=== PATIENT | female | born 1980 | race Caucasian/White ===

== ENCOUNTER 2019-03-29 18:16 | Emergency (ER) | payer OTHER ==
[2019-03-29] MEDS ORDERED: Ibuprofen 200 MG Tab PO ONE (18:28)
[2019-03-29] MEDS ORDERED: Oseltamivir 75 MG Cap PO ONE (19:29)
--- NOTE | 2019-03-29 19:33 | EDM.PDOC ---
ED HPI GENERAL MEDICAL PROBLEM - General Chief Complaint: Respiratory Problem Stated Complaint: shortness of breath, aching Time Seen by Provider: 03/29/19 19:16 Source of Information: Reports: Patient History Limitations: Reports: No Limitations - History of Present Illness INITIAL COMMENTS - FREE TEXT/NARRATIVE: This patient is a 38 year old female that presents to the ER. Patient reports that last night started with headache, fever, body aches, cough, congestion, drainage. Onset: Sudden Onset Date: 03/28/19 Location: Reports: Head Quality: Reports: Ache Severity: Moderate Improves with: Reports: None Worsens with: Reports: None Associated Symptoms: Reports: Cough, cough w sputum, Fever/Chills, Headaches, Shortness of Breath. 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: - Past Surgical History HEENT Surgical History: Reports: Oral Surgery Respiratory Surgical History: Reports: None Female Surgical History: Reports: D&C Social & Family History - Family History Family Medical History: Noncontributory - Tobacco Use Smoking Status *Q: Never Smoker - Caffeine Use Caffeine Use: Reports: Coffee - Recreational Drug Use Recreational Drug Use: No ED ROS GENERAL - Review of Systems Review Of Systems: See Below Constitutional: Reports: Fever, Chills HEENT: Reports: Rhinitis, Sinus Problem, Throat Pain Respiratory: Reports: Shortness of Breath, Cough, Sputum Cardiovascular: Reports: No Symptoms Endocrine: Reports: No Symptoms GI/Abdominal: Reports: No Symptoms : Reports: No Symptoms Musculoskeletal: Reports: Other (body aches) Skin: Reports: No Symptoms Neurological: Reports: No Symptoms Psychiatric: Reports: No Symptoms Hematologic/Lymphatic: Reports: No Symptoms Immunologic: Reports: No Symptoms ED EXAM, GENERAL - Physical Exam Exam: See Below Exam Limited By: No Limitations General Appearance: Alert, WD/WN, No Apparent Distress Eye Exam: Bilateral Eye: Normal Inspection, PERRL Ears: Normal External Exam, Normal Canal, Hearing Grossly Normal, Normal TMs Ear Exam: Bilateral Ear: Auricle Normal, Canal Normal, TM normal Nose: Normal Inspection, Normal Mucosa, No Blood Throat/Mouth: Normal Inspection, Normal Lips, Normal Teeth, Normal Gums, Normal Oropharynx, Normal Voice, No Airway Compromise Head: Atraumatic, Normocephalic Neck: Normal Inspection, Supple, Non-Tender, Full Range of Motion Respiratory/Chest: No Respiratory Distress, Lungs Clear, Normal Breath Sounds, No Accessory Muscle Use Cardiovascular: Normal Peripheral Pulses, Regular Rate, Rhythm (96 on exam), No Edema, No Gallop, No JVD, No Murmur, No Rub Peripheral Pulses: 2+: Radial (L), Radial (R) GI/Abdominal: Soft, Non-Tender Back Exam: Normal Inspection, Full Range of Motion Extremities: Normal Inspection, Normal Range of Motion, Non-Tender, No Pedal Edema, Normal Capillary Refill Neurological: Alert, Oriented Psychiatric: Normal Affect, Normal Mood Skin Exam: Warm, Dry, Intact, Normal Color, No Rash Lymphatic: No Adenopathy Course - Vital Signs Last Recorded V/S: Last Vital Signs Temp 100.6 F 03/29/19 19:40 Pulse 102 H 03/29/19 18:16 Resp 18 03/29/19 18:16 BP 122/72 03/29/19 18:16 Pulse Ox 98 03/29/19 18:16 - Orders/Labs/Meds Meds: Medications Discontinued Medications Generic Name Dose Route Start Last Admin Trade Name Flaco PRN Reason Stop Dose Admin Ibuprofen 400 mg 03/29/19 18:28 03/29/19 18:40 Motrin PO 03/29/19 18:29 400 mg ONETIME ONE Administration Oseltamivir Phosphate 75 mg 03/29/19 19:29 03/29/19 19:41 Tamiflu PO 03/29/19 19:30 75 mg ONETIME ONE Administration Oseltamivir Phosphate Confirm 03/29/19 19:51 Tamiflu Administered 03/29/19 19:52 Dose 150 mg .ROUTE .STK-MED ONE Departure - Departure Time of Disposition: 19:31 Disposition: Home, Self-Care 01 Condition: Fair Clinical Impression: Influenza - Discharge Information *PRESCRIPTION DRUG MONITORING PROGRAM REVIEWED*: Not Applicable *COPY OF PRESCRIPTION DRUG MONITORING REPORT IN PATIENT JOSE: Not Applicable Instructions: Influenza, Adult, [id number] Referrals: Mike Aranda MD [Primary Care Provider] - Forms: ED Department Discharge Additional Instructions: Followup with primary care provider Return to the ER for worsening of condition Increase fluids Motrin for fever Tylenol for fever Over the counter medications Tamiflu 75mg 1 pill twice a day for 5 days #10 no refill Sepsis Event Note - Evaluation Sepsis Screening Result: Possible Sepsis Risk - Focused Exam Vital Signs: Vital Signs Temp Temp Pulse Resp BP Pulse Ox 03/29/19 19:40 100.6 F 03/29/19 19:21 100.6 F 03/29/19 18:40 101.9 F H 03/29/19 18:16 101.9 F H 102 H 18 122/72 98 Date Exam was Performed: 03/29/19 Time Exam was Performed: 20:07 - Assessment/Plan Plan: PLEASE SEE RN NOTE FOR PFSH
[2019-03-29] MEDS ORDERED: Oseltamivir 75 MG Cap ONE (19:51)
== END 2019-03-29 20:06 | disposition home or self-care (01) ==
LOC: CC.ED 18:16
DX: J11.1 Influenza due to unidentified influenza virus with other respiratory manifestations (principal); Z88.1 Allergy status to other antibiotic agents
CPT/HCPCS: 87804; 99284; A9270